=== PATIENT | female | born 1995 | race Caucasian/White ===

== ENCOUNTER 2019-10-13 07:11 | Inpatient (IN) | payer BC ==
[2019-10-13] MEDS ORDERED: Nalbuphine 10 MG/1 ML Vial IVPUSH PRN (07:22)
[2019-10-13] MEDS ORDERED: Water For Irrigation,Sterile 1,000 ML Container IRR PRN (07:22)
[2019-10-13] MEDS ORDERED: Methylergonovine 0.2 MG/1 ML Amp IM PRN (07:22)
[2019-10-13] MEDS ORDERED: Misoprostol 200 MCG Tab PO PRN (07:22)
[2019-10-13] MEDS ORDERED: Ondansetron 4 MG/2 ML SDV IVPUSH PRN (07:22)
[2019-10-13] MEDS ORDERED: Terbutaline 1 MG/ML SDV SUBCUT PRN (07:22)
[2019-10-13] MEDS ORDERED: Sodium Chloride 0.9% 10 ML Syringe FLUSH PRN (07:22)
[2019-10-13] MEDS ORDERED: Tranexamic Acid 1,000 MG in Sodium Chloride 0.9% 100 ML IV PRN (07:22)
[2019-10-13] MEDS ORDERED: Lidocaine 1% 50 ML MDV INJECT PRN (07:22)
[2019-10-13] MEDS ORDERED: Butorphanol 1 MG/ML SDV IVPUSH PRN (07:22)
[2019-10-13] MEDS ORDERED: Sodium Chloride 0.9% 2.5 ML Syringe FLUSH PRN (07:22)
[2019-10-13] MEDS ORDERED: Carboprost Tromethamine 250 MCG/1 ML Amp IM PRN (07:22)
[2019-10-13] MEDS ORDERED: Sodium Chloride 0.9% 10 ML SDV IV PRN (07:22)
[2019-10-13] MEDS ORDERED: Oxytocin/0.9 % Sodium Chloride 30 UNIT/500 ML BAG IV SCH ×2 (07:30)
[2019-10-13] MEDS: Lactated Ringers 1,000 ML IV SCH ×2 (08:47→20:11)
[2019-10-13] MEDS ORDERED: Ropivacaine HCl/PF 100 ML ONE (20:31)
[2019-10-13] MEDS ORDERED: Ropivacaine 0.2% PF 2 MG/ML 20 ML SDV ONE (20:31)
[2019-10-13] MEDS ORDERED: fentaNYL 100 MCG/2 ML SDV ONE (20:31)
--- NOTE | 2019-10-13 21:18 | PCM.PREANE ---
Preanesthetic Assessment - Procedure Proposed Procedure: YAMILKA - Anesthesia/Transfusion/Family Hx Anesthesia History: Prior Anesthesia Without Reaction Family History of Anesthesia Reaction: No Transfusion History: No Prior Transfusion(s) Intubation History: Unknown - Review of Systems General: No Symptoms Pulmonary: No Symptoms Cardiovascular: No Symptoms Gastrointestinal: No Symptoms Neurological: No Symptoms Other: Reports: Anxiety - Physical Assessment NPO Status Date: 10/13/19 NPO Status Time: 20:15 (Clear liquids) Height: 1.6 m Weight: 68.946 kg ASA Class: 2 Mental Status: Alert & Oriented x3 Airway Class: Mallampati = 1 Dentition: Reports: Normal Dentition Thyro-Mental Finger Breadths: 3 Mouth Opening Finger Breadths: 3 ROM/Head Extension: Full Lungs: Clear to Auscultation Cardiovascular: Regular Rate - Lab Values: Laboratory Last Values WBC 13.33 K/uL (4.0-11.0) H 10/13/19 08:24 RBC 4.58 M/uL (4.30-5.90) 10/13/19 08:24 Hgb 13.3 g/dL (12.0-16.0) 10/13/19 08:24 Hct 40.7 % (36.0-46.0) 10/13/19 08:24 MCV 88.9 fL (80.0-98.0) 10/13/19 08:24 MCH 29.0 pg (27.0-32.0) 10/13/19 08:24 MCHC 32.7 g/dL (31.0-37.0) 10/13/19 08:24 RDW Std Deviation 45.8 fl (28.0-62.0) 10/13/19 08:24 RDW Coeff of Stacy 14 % (11.0-15.0) 10/13/19 08:24 Plt Count 236 K/uL (150-400) 10/13/19 08:24 MPV 11.60 fL (7.40-12.00) 10/13/19 08:24 Nucleated RBC % 0.0 /100WBC 10/13/19 08:24 Nucleated RBCs # 0 K/uL 10/13/19 08:24 SARS-CoV-2 RNA (RT-PCR) NEGATIVE (NEGATIVE) 10/13/19 08:57 Blood Type A POSITIVE 06/23/20 08:24 Antibody Screen NEGATIVE 10/13/19 08:24 - Allergies Allergies/Adverse Reactions: Allergies Allergy/AdvReac Type Severity Reaction Status Date / Time No Known Allergies Allergy Verified 09/16/15 07:31 - Blood Blood Available: No Product(s) Available: None - Anesthesia Plan Pre-Op Medication Ordered: None - Acknowledgements Anesthesia Type Planned: Epidural Pt an Appropriate Candidate for the Planned Anesthesia: Yes Alternatives and Risks of Anesthesia Discussed w Pt/Guardian: Yes Pt/Guardian Understands and Agrees with Anesthesia Plan: Yes Additional Comments: Discussed. ? answered. Permit signed. 5cm, active labor, pain 9/10. PreAnesthesia Questionnaire HEENT History: Reports: Impaired Vision Cardiovascular History: Reports: None Respiratory History: Reports: None Gastrointestinal History: Reports: None Genitourinary History: Reports: None [employer] History: Reports: None Musculoskeletal History: Reports: None Neurological History: Reports: None Psychiatric History: Reports: None Endocrine/Metabolic History: Reports: None Hematologic History: Reports: None Immunologic History: Reports: None Oncologic (Cancer) History: Reports: None Dermatologic History: Reports: None - Infectious Disease History Infectious Disease History: Reports: Chicken Pox - Past Surgical History Head Surgeries/Procedures: Reports: None HEENT Surgical History: Reports: Oral Surgery - SUBSTANCE USE Smoking Status *Q: Never Smoker Second Hand Smoke Exposure: No Recreational Drug Use History: No - HOME MEDS Home Medications: Home Meds norgestimate-ethinyl estradioL [Tri-Sprintec] 1 each PO DAILY 09/16/15 [History] - CURRENT (IN HOUSE) MEDS Current Meds: Current Medications Butorphanol Tartrate (Stadol) 1 mg IVPUSH Q1H PRN PRN Reason: Pain Carboprost Tromethamine (Hemabate Ds) 250 mcg IM ASDIRECTED PRN PRN Reason: Post Hemorrhage Oxytocin/Sodium Chloride (Oxytocin 30 Unit/500 Ml-Ns) 30 unit in 500 mls @ 555 mls/hr IV TITRATE ERIN Tranexamic Acid 1,000 mg/ (Sodium Chloride) 110 mls @ 660 mls/hr IV ONETIME PRN PRN Reason: Bleeding Oxytocin/Sodium Chloride (Oxytocin 30 Unit/500 Ml-Ns) 30 unit in 500 mls @ 2 mls/hr IV TITRATE ERIN; Protocol Last Titration: 10/13/19 18:20 Dose: 18 munits/min, 18 mls/hr Documented by: Lactated Ringer's (Ringers, Lactated) 1,000 mls @ 150 mls/hr IV ASDIRECTED ERIN Last Admin: 10/13/19 20:11 Dose: 999 mls/hr Documented by: Lidocaine HCl (Xylocaine 1%) 50 ml INJECT ONETIME PRN PRN Reason: Laceration repair Methylergonovine Maleate (Methergine) 0.2 mg IM ASDIRECTED PRN PRN Reason: Post Hemorrhage Misoprostol (Cytotec) 200 mcg PO ONETIME PRN PRN Reason: Post Hemorrhage Nalbuphine HCl (Nubain) 10 mg IVPUSH Q1H PRN PRN Reason: Pain (severe 7-10) Ondansetron HCl (Zofran) 4 mg IVPUSH Q4H PRN PRN Reason: Nausea/Vomiting Sodium Chloride (Saline Flush) 10 ml FLUSH ASDIRECTED PRN PRN Reason: Keep Vein Open Sodium Chloride (Saline Flush) 2.5 ml FLUSH ASDIRECTED PRN PRN Reason: Keep Vein Open Sodium Chloride (Normal Saline) 10 ml IV ASDIRECTED PRN PRN Reason: IV Use Sterile Water (Sterile Water For Irrigation) 1,000 ml IRR ASDIRECTED PRN PRN Reason: delivery Terbutaline Sulfate (Brethine) 0.25 mg SUBCUT ASDIRECTED PRN PRN Reason: Tacysystole Discontinued Medications Fentanyl (Sublimaze) Confirm Administered Dose 100 mcg .ROUTE .STK-MED ONE Stop: 10/13/19 20:32 Ropivacaine (Naropin 0.2%) Confirm Administered Dose 100 mls @ as directed .ROUTE .STK-MED ONE Stop: 10/13/19 20:32 Ropivacaine (Naropin 0.2%) Confirm Administered Dose 20 ml .ROUTE .STK-MED ONE Stop: 10/13/19 20:32
--- NOTE | 2019-10-13 21:24 | PCM.SN.2 ---
- Free Text/Narrative Note: Requested for YAMILKA, , active, 5cm pain 9/10. Discussed. ? answered. Permit signed. Procedure without issues. Skin local at L3-4 4ml 1% lido. Space on first pass with air/saline. Reconfirmed with saline. Cath to 9cm. Test negative. Occlusive Drsg. Bolus with 0.2% Naropin/Fentanyl 100mcg slowly. Pain post bolus 07/30. 2104 Infusion started, pain 210. Tolerated well. VSS, FHT good.
[2019-10-14] MEDS ORDERED: ceFAZolin 2 GM in Premix Bag 1 BAG IV ONE (05:51)
[2019-10-14] MEDS ORDERED: Lidocaine 2% 5 ML SDV ONE ×2 (05:56→06:20)
[2019-10-14] MEDS ORDERED: ePHEDrine 50 MG/ML SDV ONE (05:56)
[2019-10-14] MEDS ORDERED: Ondansetron 4 MG/2 ML SDV ONE (05:56)
[2019-10-14] MEDS ORDERED: Sodium Chloride 0.9% 20 ML ONE (05:59)
[2019-10-14] MEDS ORDERED: Azithromycin 500 MG in Sodium Chloride 0.9% 250 ML IV SCH (06:00)
[2019-10-14] MEDS ORDERED: Morphine PF 10 MG/10 ML SDV ONE (06:20)
[2019-10-14] MEDS ORDERED: Misoprostol 200 MCG Tab RECTAL PRN (06:56)
[2019-10-14] MEDS ORDERED: Lanolin 100% Cream 7 GM Tube TOP PRN (06:56)
[2019-10-14] MEDS ORDERED: Ondansetron 4 MG/2 ML SDV IVPUSH PRN ×2 (06:56→07:49)
[2019-10-14] MEDS ORDERED: diphenhydrAMINE 50 MG/ML SDV IVPUSH PRN ×2 (06:56→07:49)
[2019-10-14] MEDS ORDERED: Oxytocin 10 Units/1 ML SDV IM PRN (06:56)
[2019-10-14] MEDS ORDERED: Methylergonovine 0.2 MG/1 ML Amp IM PRN (06:56)
[2019-10-14] MEDS ORDERED: Tranexamic Acid 1,000 MG in Sodium Chloride 0.9% 100 ML IV PRN (06:56)
[2019-10-14] MEDS ORDERED: Acetaminophen/oxyCODONE 325-5 MG Tab PO PRN ×3 (06:56→07:49)
[2019-10-14] MEDS ORDERED: Bisacodyl 10 MG Supp RECTAL PRN (06:56)
[2019-10-14] MEDS ORDERED: Lactated Ringers 1,000 ML IV SCH (07:00)
[2019-10-14] MEDS ORDERED: Oxytocin/Lactated Ringers 30 UNIT/500 ML BAG IV SCH (07:00)
--- NOTE | 2019-10-14 07:04 | PCM.OPNOTE ---
- General Post-Op/Procedure Note Date of Surgery/Procedure: 10/14/19 Operative Procedure(s): Primary low-transverse section via Pfannenstiel Findings: Live female , Apgars 8/9, weight 7lb 2 oz. Cord gases pending. Normal-appearing uterus, ovaries, and tubes. Placenta intact and with 3-vessel cord. Blood-tinged urine. Pre Op Diagnosis: 24yo @ 41w4d. Induction of labor for late-term. Arrest of descent Post-Op Diagnosis: 24yo @ 41w4d. Induction of labor for late-term. Arrest of descent Anesthesia Technique: Epidural Primary Surgeon: Jaja Velázquez Anesthesia Provider: Jorden Delgado Pathology: Cord gases, cord blood Fluid Replacement, Intraop: 900 Output, Urine Amount: 150 (blood-tinged) EBL in mLs: 900 Complications: None Condition: Good Free Text/Narrative:: 2g Cefazolin and 500mg Azithromycin IV given prior prophylaxis
[2019-10-14] MEDS: Ketorolac 30 MG/ML SDV IVPUSH SCH ×3 (07:26→19:21)
--- NOTE | 2019-10-14 07:41 | PCM.POSTAN ---
POST ANESTHESIA ASSESSMENT - MENTAL STATUS Mental Status: Alert - RESPIRATORY Respiratory Status: Respiratory Rate WNL - CARDIOVASCULAR CV Status: Pulse Rate WNL - GASTROINTESTINAL GI Status: No Symptoms Free Text/Narrative:: Nausea resolved - PAIN Pain Score: 0 (Epidural regressing) - POST OP HYDRATION Hydration Status: Adequate & Stable - OBSERVATIONS Free Text/Narrative:: Doing well.
[2019-10-14] MEDS ORDERED: fentaNYL 100 MCG/2 ML SDV IVPUSH PRN (07:49)
[2019-10-14] MEDS ORDERED: Naloxone 0.4 MG/ML Syringe IVPUSH PRN (07:49)
[2019-10-14] MEDS ORDERED: Nalbuphine 10 MG/1 ML Vial IVPUSH PRN (07:49)
--- NOTE | 2019-10-14 08:12 | OR ---
SURGEON: Jaja Velázquez MD DATE OF PROCEDURE: 10/14/2019 PREOPERATIVE DIAGNOSES: 1. A 24-year-old G1, P0, at 41 weeks and 4 days' gestation. 2. Induction of labor for late term. 3. Arrest of descent. POSTOPERATIVE DIAGNOSES: 1. A 24-year-old G1, P0, at 41 weeks and 4 days' gestation. 2. Induction of labor for late term. 3. Arrest of descent. PROCEDURE: Primary low transverse section via Pfannenstiel. PRIMARY SURGEON: Jaja Velázquez MD ANESTHESIA: Epidural. IV FLUIDS: 100 mL. URINE OUTPUT: 150 mL blood-tinged urine. ESTIMATED BLOOD LOSS: 100 mL. FINDINGS: Live female infant in cephalic presentation. score of 8 and 9 at one and five minutes respectively. Weight 7 pounds 2 ounces. Cord gas pending. Normal- appearing uterus, ovaries, and tubes. Placenta intact with 3-vessel cord. Antibiotic prophylaxis 2 g of Ancef and 500 mg of azithromycin IV. COMPLICATIONS: None. INDICATIONS: This is a 24-year-old, G1, P0, who presented at 41 weeks and 3 days' gestation for induction of labor due to late term. Upon presentation, her cervix was found to be 4 cm dilated. She was started on Pitocin for induction of labor. GBS was negative. At 5 cm dilated, spontaneous rupture of membranes occurred with clear fluid noted. She received an epidural for pain control and was 8 cm dilated. She progressed to complete cervical dilation and began pushing. After approximately 3 hours of pushing, the station remained at +1 station with minimal descent. At this time, the decision was made to proceed with primary section for arrest of descent. The risks and benefits of the procedure were discussed with the patient and she agreed to proceed. DESCRIPTION OF PROCEDURE: The patient was taken to the operating room, where epidural anesthesia was found to be adequate. She was prepared and draped in a normal sterile fashion. A Pfannenstiel skin incision was made with a scalpel and carried through to the underlying layer of fascia with a Bovie. The fascia was incised in the midline and incision extended laterally with curved Goldman scissors. The superior aspect of the fascial incision was grasped with Nicho clamps, elevated, and underlying rectus muscles dissected off bluntly and with Bovie. In a similar fashion, the inferior aspect of the fascial incision was grasped with Nicho clamps, elevated, and underlying rectus muscles dissected off bluntly with curved Goldman scissors. The rectus muscles were in the midline and the peritoneum identified and entered bluntly with a digit. The peritoneal incision was extended using manual traction and the Bovie. The Froylan retractor was inserted. A bladder flap was created in the usual manner. A low uterine hysterotomy was created. The hysterotomy was extended using manual traction. The head was not delivered easily and a hand from below was used to assist in elevating the head out of the pelvis. This facilitated delivery of the head followed by the shoulders and the remainder of the body. Nuchal cord x1 was noted and reduced after delivery of the body. The cord was clamped and cut and the nose and mouth were suctioned with bulb suction. The was handed off to the awaiting nurse and county ordinary. Cord gases and cord blood were obtained. The placenta was removed using uterine massage and manual traction on the cord. The uterus was exteriorized and cleared of all clots and debris. The uterine incision was repaired with a running lock stitch of 0 Vicryl suture. The 2nd stitch of the same suture was used to obtain hemostasis. The gutters were cleared and the uterus replaced into the abdomen. The hysterotomy was inspected and noted to be hemostatic. The Froylan retractor was removed. The fascial incision was closed with a running stitch of 0 Vicryl suture. The subcutaneous tissue was irrigated and hemostatic. The skin was closed with 4-0 Monocryl in a subcuticular fashion. All sponge, lap, and needle counts were correct x2. The patient and infant tolerated the delivery well. ANNITA / DMITRY /[id number] JAVON
[2019-10-14] MEDS: Docusate Sodium 100 MG Cap PO SCH ×2 (08:53→21:10)
[2019-10-15] MEDS: Ketorolac 30 MG/ML SDV IVPUSH SCH ×2 (01:23→07:49)
--- NOTE | 2019-10-15 07:56 | PCM48HPAN ---
Post Anesthesia Note - EVALUATION WITHIN 48HRS OF ANESTHETIC Vital Signs in Normal Range: Yes Patient Participated in Evaluation: Yes Respiratory Function Stable: Yes Airway Patent: Yes Cardiovascular Function Stable: Yes Hydration Status Stable: Yes Pain Control Satisfactory: Yes Nausea and Vomiting Control Satisfactory: Yes Mental Status Recovered: Yes Vital Signs: Last Vital Signs Temp 35.9 C L 10/15/19 05:16 Pulse 101 H 10/15/19 06:00 Resp 17 10/15/19 06:00 BP 110/63 10/15/19 05:16 Pulse Ox 99 10/15/19 06:00 - COMMENTS/OBSERVATIONS Free Text/Narrative:: Doing well.
--- NOTE | 2019-10-15 08:54 | PCM.PNPP ---
- General Info Date of Service: 10/15/19 Functional Status: Reports: Pain Controlled, Tolerating Diet, Ambulating, Urinating - Review of Systems General: Reports: No Symptoms HEENT: Reports: No Symptoms Pulmonary: Reports: No Symptoms Cardiovascular: Reports: No Symptoms Gastrointestinal: Reports: No Symptoms Genitourinary: Reports: No Symptoms Musculoskeletal: Reports: No Symptoms Skin: Reports: No Symptoms Neurological: Reports: No Symptoms Psychiatric: Reports: No Symptoms - Patient Data Vital Signs - Most Recent: Last Vital Signs Temp 37.1 C 10/15/19 08:06 Pulse 115 H 10/15/19 08:06 Resp 17 10/15/19 08:06 BP 142/102 H 10/15/19 08:06 Pulse Ox 99 10/15/19 08:06 Weight - Most Recent: 68.946 kg I&O - Last 24 Hours: Intake & Output 10/14/19 10/15/19 10/15/19 22:59 06:59 14:59 Output Total 1350 Balance -1350 Lab Results - Last 24 Hours: Laboratory Results - last 24 hr 10/13/19 10/15/19 Range/Units 08:24 05:16 Hgb 9.8 L (12.0-16.0) g/dL Hct 30.6 L (36.0-46.0) % RPR Non-Reac (Non-Reac) Med Orders - Current: Current Medications Bisacodyl (Dulcolax) 10 mg RECTAL ONETIME PRN PRN Reason: Constipation Diphenhydramine HCl (Benadryl) 25 mg IVPUSH Q6H PRN PRN Reason: Itching or Nausea Docusate Sodium (Colace) 100 mg PO BID [facility] Last Admin: 10/14/19 21:10 Dose: 100 mg Documented by: Emollient Ointment (Lansinoh Hpa) 0 gm TOP ASDIRECTED PRN PRN Reason: Sore Nipples Fentanyl (Sublimaze) 50 mcg IVPUSH Q1H PRN PRN Reason: Pain (severe 7-10) Azithromycin 500 mg/ Sodium (Chloride) 250 mls @ 250 mls/hr IV ONETIME ERIN Lactated Ringer's (Ringers, Lactated) 1,000 mls @ 125 mls/hr IV ASDIRECTED ERIN Oxytocin/Lactated Ringer's (Pitocin In Lr 30 Units/500 Ml) 30 unit in 500 mls @ 999 mls/hr IV TITRATE ERIN; Protocol Tranexamic Acid 1,000 mg/ (Sodium Chloride) 110 mls @ 660 mls/hr IV ONETIME PRN PRN Reason: Bleeding Ibuprofen (Motrin) 800 mg PO Q8H PRN PRN Reason: mild pain or fever Methylergonovine Maleate (Methergine) 0.2 mg IM ONETIME PRN PRN Reason: Excessive Vaginal Bleeding Misoprostol (Cytotec) 1,000 mcg RECTAL ONETIME PRN PRN Reason: excessive bleeding Nalbuphine HCl (Nubain) 5 mg IVPUSH ASDIRECTED PRN PRN Reason: Itching Ondansetron HCl (Zofran) 4 mg IVPUSH Q4H PRN PRN Reason: Nausea/Vomiting Ondansetron HCl (Zofran) 4 mg IVPUSH Q6H PRN PRN Reason: Nausea Oxycodone/Acetaminophen (Percocet 325-5 Mg) 1 tab PO Q4H PRN PRN Reason: Pain (moderate 4-6) Oxycodone/Acetaminophen (Percocet 325-5 Mg) 2 tab PO Q4H PRN PRN Reason: Pain (moderate 4-6) Oxycodone/Acetaminophen (Percocet 325-5 Mg) 2 tab PO Q6H PRN PRN Reason: Pain (moderate 4-6) Oxytocin (Pitocin) 10 unit IM ASDIRECTED PRN PRN Reason: Excessive Vaginal Bleeding Sodium Chloride (Saline Flush) 10 ml FLUSH ASDIRECTED PRN PRN Reason: Keep Vein Open Sodium Chloride (Saline Flush) 2.5 ml FLUSH ASDIRECTED PRN PRN Reason: Keep Vein Open Sodium Chloride (Normal Saline) 10 ml IV ASDIRECTED PRN PRN Reason: IV Use Discontinued Medications Butorphanol Tartrate (Stadol) 1 mg IVPUSH Q1H PRN PRN Reason: Pain Carboprost Tromethamine (Hemabate Ds) 250 mcg IM ASDIRECTED PRN PRN Reason: Post Hemorrhage Diphenhydramine HCl (Benadryl) 25 mg IVPUSH Q4H PRN PRN Reason: Itching Stop: 10/15/19 07:49 Ephedrine Sulfate (Ephedrine Sulfate) Confirm Administered Dose 100 mg .ROUTE .STK-MED ONE Stop: 10/14/19 05:57 Fentanyl (Sublimaze) Confirm Administered Dose 100 mcg .ROUTE .STK-MED ONE Stop: 10/13/19 20:32 Oxytocin/Sodium Chloride (Oxytocin 30 Unit/500 Ml-Ns) 30 unit in 500 mls @ 555 mls/hr IV TITRATE ERIN Tranexamic Acid 1,000 mg/ (Sodium Chloride) 110 mls @ 660 mls/hr IV ONETIME PRN PRN Reason: Bleeding Oxytocin/Sodium Chloride (Oxytocin 30 Unit/500 Ml-Ns) 30 unit in 500 mls @ 2 mls/hr IV TITRATE [facility]; Protocol Last Titration: 10/13/19 20:32 Dose: 16 munits/min, 16 mls/hr Documented by: Lactated Ringer's (Ringers, Lactated) 1,000 mls @ 150 mls/hr IV ASDIRECTED ERIN Last Infusion: 10/13/19 21:05 Dose: 150 mls/hr Documented by: Ropivacaine (Naropin 0.2%) Confirm Administered Dose 100 mls @ as directed .ROUTE .STK-MED ONE Stop: 10/13/19 20:32 Cefazolin Sodium/Dextrose 2 gm (/ Premix) 50 mls @ 100 mls/hr IV ONETIME ONE Stop: 10/14/19 06:20 Sodium Chloride (Normal Saline) Confirm Administered Dose 20 mls @ as directed .ROUTE .STK-MED ONE Stop: 10/14/19 06:00 Ketorolac Tromethamine (Toradol) 30 mg IVPUSH Q6H ERIN Stop: 10/15/19 07:01 Last Admin: 10/15/19 07:49 Dose: 30 mg Documented by: Lidocaine (Xylocaine-Mpf 2%) Confirm Administered Dose 15 ml .ROUTE .STK-MED ONE Stop: 10/14/19 05:57 Lidocaine (Xylocaine-Mpf 2%) Confirm Administered Dose 5 ml .ROUTE .STK-MED ONE Stop: 10/14/19 06:21 Lidocaine HCl (Xylocaine 1%) 50 ml INJECT ONETIME PRN PRN Reason: Laceration repair Methylergonovine Maleate (Methergine) 0.2 mg IM ASDIRECTED PRN PRN Reason: Post Hemorrhage Misoprostol (Cytotec) 200 mcg PO ONETIME PRN PRN Reason: Post Hemorrhage Morphine Sulfate (Duramorph Pf) Confirm Administered Dose 10 mg .ROUTE .STK-MED ONE Stop: 10/14/19 06:21 Nalbuphine HCl (Nubain) 10 mg IVPUSH Q1H PRN PRN Reason: Pain (severe 7-10) Naloxone HCl (Narcan) 0.1 mg IVPUSH ONETIME PRN PRN Reason: Respiratory Depression Stop: 10/15/19 07:49 Ondansetron HCl (Zofran) 4 mg IVPUSH Q4H PRN PRN Reason: Nausea/Vomiting Ondansetron HCl (Zofran) Confirm Administered Dose 4 mg .ROUTE .STK-MED ONE Stop: 10/14/19 05:57 Ropivacaine (Naropin 0.2%) Confirm Administered Dose 20 ml .ROUTE .STK-MED ONE Stop: 10/13/19 20:32 Sterile Water (Sterile Water For Irrigation) 1,000 ml IRR ASDIRECTED PRN PRN Reason: delivery Terbutaline Sulfate (Brethine) 0.25 mg SUBCUT ASDIRECTED PRN PRN Reason: Tacysystole - Infant Interaction Disposition, : to Nursery Feeding: Attempted ; Nursed Fair/Poor, Bottle Fed Support Person: - Recovery Exam Fundal Tone: Firm Fundal Level: 1 Fingerbreadths Below Umbilicus Fundal Placement: Midline Lochia Amount: Scant Lochia Color: Rubra/Red Episiotomy/Laceration: None Bladder Status: Voiding Urinary Elimination: Not Voiding - Exam General: Alert, Oriented Neck: Supple Lungs: Normal Respiratory Effort GI/Abdominal Exam: Soft, No Distention, Tender (appropriate tenderness to palpation) Extremities: Non-Tender, No Pedal Edema Skin: Warm, Dry, Intact Wound/Incisions: Healing Well Neurological: No New Focal Deficit Psy/Mental Status: Alert, Normal Affect, Normal Mood - Problem List & Annotations (1) delivery delivered SNOMED Code(s): 174338669 Code(s): O82 - ENCOUNTER FOR DELIVERY WITHOUT INDICATION Status: Acute Current Visit: Yes (2) Arrest of descent, delivered, current hospitalization SNOMED Code(s): 12740195, 830169990 Code(s): O62.1 - SECONDARY UTERINE INERTIA Status: Acute Current Visit: Yes - Problem List Review Problem List Initiated/Reviewed/Updated: Yes - My Orders Last 24 Hours: My Active Orders 10/14/19 09:00 Docusate Sodium [Colace] 100 mg PO BID 10/15/19 13:00 Ibuprofen [Motrin] 800 mg PO Q8H PRN - Assessment Assessment:: 24yo P1 s/p 1LTCD for arrest of descent at 41w4d, POD#1 - Plan Plan:: Patient desires discharge home today. Will return after clinic to evaluate patient, if meeting all milestones, will discharge home. Encourage ambulation.
[2019-10-15] MEDS: Docusate Sodium 100 MG Cap PO SCH (10:09)
[2019-10-15] MEDS ORDERED: Ibuprofen 800 MG Tab PO PRN (13:00)
--- NOTE | 2019-10-15 17:04 | PCM.SN.2 ---
- Free Text/Narrative Note: Patient continues to desire discharge home today. Voiding, tolerating oral intake, ambulating without dizziness, pain controlled. Reviewed discharge instructions. Follow-up incision check in 2 weeks.
[2019-10-15 17:43] VITALS: BP 124/69; PULSE 97
== END 2019-10-15 18:35 | disposition home or self-care (01) | DRG 540 ==
LOC: MW.OB 07:11 → MW.OBCHECK 07:11 → MW.OB 07:22 → OBSVTOIN 10-14 06:30 → MW.OB 10-14 11:11
PROVIDERS: ADMIT Obstetrics & Gynecology; ATTEND Obstetrics & Gynecology
PROC: 10D00Z1 Extraction of Products of Conception, Low, Open Approach (ICD-10-PCS; principal; 2019-10-14)
PROC: 10H07YZ Insertion of Other Device into Products of Conception, Via Natural or Artificial Opening (ICD-10-PCS; 2019-10-14)
PROC: 3E033VJ Introduction of Other Hormone into Peripheral Vein, Percutaneous Approach (ICD-10-PCS; 2019-10-14)
PROC: 3E0R3BZ Introduction of Anesthetic Agent into Spinal Canal, Percutaneous Approach (ICD-10-PCS; 2019-10-14)
PROC: 00HU33Z Insertion of Infusion Device into Spinal Canal, Percutaneous Approach (ICD-10-PCS; 2019-10-14)
DX: O48.0 Post-term pregnancy (principal); Z37.0 Single live birth; Z3A.41 41 weeks gestation of pregnancy; O62.1 Secondary uterine inertia; O76 Abnormality in fetal heart rate and rhythm complicating labor and delivery
CPT/HCPCS: 01967; 36415; 51701; 51702; 59025; 82803; 85014; 85018; 85027; 86592; 86593; 86850; 86900; 86901; A9270-GY; J1885; J2001; J2270; J2405; J2590; J7120; U0002

== ENCOUNTER 2021-08-14 04:57 | Inpatient (IN) | payer BC ==
[2021-08-14] MEDS ORDERED: Methylergonovine 0.2 MG/1 ML Amp IM PRN ×2 (05:03→09:17)
[2021-08-14] MEDS ORDERED: Misoprostol 200 MCG Tab PO PRN (05:03)
[2021-08-14] MEDS ORDERED: Sodium Chloride 0.9% 10 ML Syringe FLUSH PRN (05:03)
[2021-08-14] MEDS ORDERED: ceFAZolin 2 GM in Premix Bag 1 BAG IV ONE (05:03)
[2021-08-14] MEDS ORDERED: Carboprost Tromethamine 250 MCG/1 ML Amp IM PRN (05:03)
[2021-08-14] MEDS ORDERED: Sodium Chloride 0.9% 20 ML SDV IV PRN (05:03)
[2021-08-14] MEDS ORDERED: Tranexamic Acid 1,000 MG in Sodium Chloride 0.9% 100 ML IV PRN ×2 (05:03→09:17)
[2021-08-14] MEDS ORDERED: Citric Acid/Sodium Citrate Solution 30 ML Cup PO ONE (05:03)
[2021-08-14] MEDS ORDERED: Sodium Chloride 0.9% 2.5 ML Syringe FLUSH PRN (05:03)
[2021-08-14] MEDS ORDERED: Water For Irrigation,Sterile 1,000 ML Container IRR PRN (05:03)
[2021-08-14] MEDS ORDERED: Oxytocin/0.9 % Sodium Chloride 30 UNIT/500 ML BAG IV SCH ×2 (05:15)
[2021-08-14] MEDS ORDERED: Lactated Ringers 1,000 ML IV SCH ×3 (05:15→09:30)
[2021-08-14] MEDS ORDERED: ceFAZolin 1 GM Vial ONE (07:17)
[2021-08-14] MEDS ORDERED: Ondansetron 4 MG/2 ML SDV ONE (07:17)
[2021-08-14] MEDS ORDERED: Water For Injection, Sterile 20 ML ONE (07:17)
[2021-08-14] MEDS ORDERED: Oxytocin 10 Units/1 ML SDV ONE (07:17)
[2021-08-14] MEDS ORDERED: Dexmedetomidine 200 MCG/2 ML SDV ONE (07:17)
[2021-08-14] MEDS ORDERED: Ketorolac 30 MG/ML SDV ONE (07:17)
[2021-08-14] MEDS ORDERED: Morphine PF 10 MG/10 ML SDV ONE (07:22)
[2021-08-14] MEDS ORDERED: Dexamethasone 4 MG/ML 5 ML MDV ONE (07:24)
[2021-08-14] MEDS ORDERED: Octyl 2-Cyanoacrylate 1 Tube ONE (07:37)
[2021-08-14] MEDS ORDERED: Misoprostol 200 MCG Tab RECTAL PRN (09:17)
[2021-08-14] MEDS ORDERED: Bisacodyl 10 MG Supp RECTAL PRN (09:17)
[2021-08-14] MEDS ORDERED: Acetaminophen/oxyCODONE 325-5 MG Tab PO PRN ×2 (09:17)
[2021-08-14] MEDS ORDERED: Oxytocin 10 Units/1 ML SDV IM PRN (09:17)
[2021-08-14] MEDS ORDERED: Lanolin 100% Cream 7 GM Tube TOP PRN (09:17)
[2021-08-14] MEDS ORDERED: Ondansetron 4 MG/2 ML SDV IVPUSH PRN ×3 (09:17→09:32)
[2021-08-14] MEDS ORDERED: diphenhydrAMINE 50 MG/ML SDV IVPUSH PRN ×2 (09:17→09:32)
[2021-08-14] MEDS ORDERED: fentaNYL 100 MCG/2 ML SDV IVPUSH PRN (09:31)
[2021-08-14] MEDS ORDERED: Naloxone 0.4 MG/ML SDV IVPUSH PRN (09:31)
[2021-08-14] MEDS ORDERED: Metoclopramide 10 MG/2 ML SDV IVPUSH PRN (09:31)
[2021-08-14] MEDS ORDERED: Albuterol 0.083% 2.5 MG/3 ML Neb Soln NEB PRN (09:31)
[2021-08-14] MEDS ORDERED: Nalbuphine HCl 10 MG/ 1ML Amp IVPUSH PRN (09:33)
[2021-08-14] MEDS ORDERED: Ketorolac 30 MG/ML SDV IVPUSH SCH (13:30)
[2021-08-14] MEDS: Ketorolac 30 MG/ML SDV IVPUSH SCH ×2 (15:22→22:12)
[2021-08-14] MEDS: Docusate Sodium 100 MG Cap PO SCH (22:12)
[2021-08-15] MEDS: Ketorolac 30 MG/ML SDV IVPUSH SCH ×2 (04:59→10:59)
[2021-08-15] MEDS: Docusate Sodium 100 MG Cap PO SCH (08:28)
[2021-08-15] MEDS ORDERED: Ibuprofen 800 MG Tab PO PRN (13:30)
[2021-08-15 16:34] VITALS: BP 127/67; PULSE 92
== END 2021-08-15 16:14 | disposition home or self-care (01) | DRG 540 ==
LOC: MW.OB 04:57
PROVIDERS: ADMIT Obstetrics & Gynecology; ATTEND Obstetrics & Gynecology
PROC: 10D00Z1 Extraction of Products of Conception, Low, Open Approach (ICD-10-PCS; principal; 2021-08-14)
DX: O34.211 Maternal care for low transverse scar from previous cesarean delivery (principal); Z37.0 Single live birth; O36.5930 Maternal care for other known or suspected poor fetal growth, third trimester, not applicable or unspecified; O99.52 Diseases of the respiratory system complicating childbirth; J45.909 Unspecified asthma, uncomplicated; Z20.822 Contact with and (suspected) exposure to COVID-19; Z3A.38 38 weeks gestation of pregnancy
CPT/HCPCS: 01961; 36415; 51702; 59025; 82803; 85014; 85018; 85027; 86592; 86850; 86900; 86901; A9270-GY; J0690; J1100; J1885; J2274; J2370; J2405; J2590; J7120; U0002

== ENCOUNTER 2023-05-31 05:12 | Inpatient (IN) | payer BC ==
[2023-05-31] MEDS: Lactated Ringers 1,000 ML IV SCH ×2 (05:30→09:35)
[2023-05-31] MEDS ORDERED: Sodium Chloride 0.9% 2.5 ML Syringe FLUSH PRN (05:39)
[2023-05-31] MEDS ORDERED: Sodium Chloride 0.9% 20 ML SDV IV PRN (05:39)
[2023-05-31] MEDS ORDERED: Oxytocin/0.9 % Sodium Chloride 30 UNIT/500 ML BAG IV SCH ×2 (05:45→09:30)
[2023-05-31 05:54] LABS: HEMATOCRIT 40.2 % (37.0-47.0); HEMOGLOBIN 13.8 g/dL (12.0-16.0); MEAN CORPUSCULAR HEMOGLOBIN 30.5 pg (28.0-32.0); MEAN CORPUSCULAR HGB CONC 34.3 g/dL (32.0-36.0); MEAN CORPUSCULAR VOLUME 88.7 fL (83.0-99.0); MEAN PLATELET VOLUME 12.1 fL (9.4-12.3); PLATELET COUNT,PLT 133 K/uL (150-400); RED BLOOD CELL COUNT 4.53 M/uL (4.10-5.30)
[2023-05-31] MEDS ORDERED: droPERidol 5 MG/2 ML SDV IVPUSH PRN ×2 (07:06→16:33)
[2023-05-31] MEDS ORDERED: Acetaminophen/oxyCODONE 325-5 MG Tab PO PRN (07:06)
[2023-05-31] MEDS ORDERED: Morphine 2 MG/ML SYRINGE IVPUSH PRN (07:06)
[2023-05-31] MEDS ORDERED: Naloxone 0.4 MG/ML SDV IVPUSH PRN (07:06)
[2023-05-31] MEDS ORDERED: diphenhydrAMINE 50 MG/ML SDV IVPUSH PRN (07:06)
[2023-05-31] MEDS ORDERED: fentaNYL 50 MCG/ML SDV IVPUSH PRN ×2 (07:06)
[2023-05-31] MEDS ORDERED: Albuterol 0.083% 2.5 MG/3 ML Neb Soln NEB PRN (07:06)
[2023-05-31] MEDS ORDERED: HYDROmorphone 1 MG/ML Syringe IVPUSH PRN (07:06)
[2023-05-31] MEDS ORDERED: Ondansetron 4 MG/2 ML SDV IVPUSH PRN ×2 (07:06)
[2023-05-31] MEDS ORDERED: ePHEDrine 50 MG/ML SDV IVPUSH PRN (07:06)
[2023-05-31] MEDS ORDERED: Oxytocin 10 Units/1 ML SDV ONE (07:25)
[2023-05-31] MEDS ORDERED: Ondansetron 4 MG/2 ML SDV ONE (07:25)
[2023-05-31] MEDS ORDERED: Ropivacaine 0.5% 5 MG/ML 30 ML SDV ONE (07:25)
[2023-05-31] MEDS ORDERED: fentaNYL 100 MCG/2 ML SDV ONE (07:25)
[2023-05-31] MEDS ORDERED: Ketorolac 30 MG/ML SDV ONE (07:25)
[2023-05-31] MEDS ORDERED: ceFAZolin 1 GM Vial ONE (07:25)
[2023-05-31] MEDS ORDERED: Bupivacaine 0.25% 30 ML SDV ONE (07:25)
[2023-05-31] MEDS ORDERED: EPINEPHrine 1 MG/1 ML Amp ONE (07:26)
[2023-05-31] MEDS ORDERED: Morphine PF 10 MG/10 ML SDV ONE (07:26)
[2023-05-31] MEDS: ceFAZolin 2 GM in Sodium Chloride 0.9% 50 ML IV ONE (07:36)
[2023-05-31] MEDS: Citric Acid/Sodium Citrate Solution 30 ML Cup PO ONE (07:36)
[2023-05-31] MEDS ORDERED: Tranexamic Acid 1,000 MG/10 ML Vial ONE (08:36)
[2023-05-31] MEDS ORDERED: Misoprostol 200 MCG Tab RECTAL PRN (09:18)
[2023-05-31] MEDS ORDERED: Methylergonovine 0.2 MG/1 ML Amp IM PRN (09:18)
[2023-05-31] MEDS ORDERED: oxyCODONE 5 MG Tab PO PRN (09:18)
[2023-05-31] MEDS ORDERED: Acetaminophen 500 MG Tab PO PRN (09:18)
[2023-05-31] MEDS ORDERED: Bisacodyl 10 MG Supp RECTAL PRN (09:18)
[2023-05-31] MEDS ORDERED: Oxytocin 10 Units/1 ML SDV IM PRN (09:18)
[2023-05-31] MEDS ORDERED: Loratadine 10 MG Tab PO PRN (09:21)
[2023-05-31 09:26] LABS: PH,UMBILICAL ARTERIAL 7.276 (7.18-7.38); PH,UMBILICAL VENOUS 7.305 (7.25-7.45)
[2023-05-31] MEDS: Metoclopramide 10 MG/2 ML SDV IVPUSH PRN (09:32)
[2023-05-31] MEDS ORDERED: Albuterol 8 GM Inhaler INH PRN (10:00)
[2023-05-31] MEDS: Acetaminophen 1,000 MG in Premix Bag 1 BAG IV SCH (10:11)
[2023-05-31] MEDS: Ondansetron 4 MG/2 ML SDV IVPUSH PRN (11:44)
[2023-05-31] MEDS: diphenhydrAMINE 50 MG/ML SDV IVPUSH PRN (11:47)
[2023-05-31] MEDS: Ketorolac 30 MG/ML SDV IVPUSH SCH (15:31)
[2023-05-31] MEDS: Lanolin 100% Cream 7 GM Tube TOP PRN (16:31)
[2023-05-31] MEDS: Scopalamine 1mg/3day Transdermal Patch TRDERM PRN (17:10)
[2023-05-31] MEDS: Docusate Sodium 100 MG Cap PO SCH (20:48)
[2023-06-01 06:26] LABS: HEMATOCRIT 31.2 % (37.0-47.0); HEMOGLOBIN 10.8 g/dL (12.0-16.0)
[2023-06-01] MEDS: Sodium Chloride 0.9% 10 ML Syringe FLUSH PRN (09:47)
[2023-06-01] MEDS: Prenatal Multivitamin with Calcium/Folic Acid/Iron Tab PO SCH (09:47)
[2023-06-01 11:09] VITALS: BP 111/58; PULSE 70
[2023-06-01] MEDS ORDERED: Ibuprofen 800 MG Tab PO PRN (21:30)
== END 2023-06-01 13:20 | disposition home or self-care (01) | DRG 540 ==
LOC: MW.OB 05:12
PROVIDERS: ADMIT Obstetrics & Gynecology; ATTEND Obstetrics & Gynecology
PROC: 10D00Z1 Extraction of Products of Conception, Low, Open Approach (ICD-10-PCS; principal; 2023-05-31 08:00)
DX: O34.211 Maternal care for low transverse scar from previous cesarean delivery (principal); O99.52 Diseases of the respiratory system complicating childbirth; Z3A.39 39 weeks gestation of pregnancy; J45.909 Unspecified asthma, uncomplicated; Z37.0 Single live birth
CPT/HCPCS: 36415; 59025; 82803; 85014; 85018; 85027; 86592; 86850; 86900; 86901; 86902; 86920; 86921; 86922; A9270-GY; J0131; J0171; J0665; J0690; J1100; J1200; J1885; J2274; J2405; J2590; J2765; J2795; J3010; J3490; J7120